=== PATIENT | female | born 1960 | race African-American/Black ===

== ENCOUNTER 2017-01-16 10:32 | Emergency (ER) | payer OTHER ==
[~2017-01-16] VITALS: Ht 167.6 cm; Wt 81.0 kg
[2017-01-16 10:34] VITALS: BP 169/84; PULSE 75; RESP 16; TEMP 97.9; O2SAT 97
[2017-01-16 10:42] VITALS: BP 136/73; PULSE 76; RESP 16; O2SAT 100
[2017-01-16] MEDS ORDERED: FERR1TAB36 PO (10:47)
[2017-01-16] MEDS ORDERED: SODIUM CHLOR 0.9% 1000 ML INJ 1,000 ML IV SCH (10:59)
[2017-01-16] MEDS ORDERED: PANTOPRAZOLE SODIUM 40 MG VIAL IVP ONE (11:00)
[2017-01-16] MEDS ORDERED: SODIUM CHLORIDE 0.9% FLUSH 5 ML FLUSH IVF PRN (11:00)
--- NOTE | 2017-01-16 11:02 | PD ---
HPI Chief Complaint: Abdominal Pain Time Seen by Provider: 11:01 Travel History International Travel<30 days: No Contact w/Intl Traveler<30days: No Traveled to known affect area: No History of Present Illness HPI Patient is a 56-year-old female presenting to her chart for evaluation of epigastric abdominal pain that started this morning. Patient reports pain is a 710 and describes as aching. Patient ate breakfast and felt fine, and the pain started. She's never had pain like this before. She denies any nausea, vomiting, fever, chills, diarrhea, chest pain, shortness of breath. She denies any sick contacts. Patient further denies any alcohol or tobacco use. She denies any illicit drug use. Her past medical history includes anemia, surgical history includes a . [facility] Past Medical History Anemia: Yes Influenza Vaccination: No ?: Not LMP: 01/16/2017 Past Surgical History Section: Yes Social History Alcohol Use: No Tobacco Use: No Substance Use: No Allergies-Medications (Allergen,Severity, Reaction): Coded Allergies: No Known Allergies (Unverified , 01/16/17) Reported Meds & Prescriptions Reported Meds & Active Scripts Active Reported Iron (Ferrous Sulfate) 325 Mg Tab 325 Mg PO DAILY Take Review of Systems Except as stated in HPI: all other systems reviewed are Neg HENT: No: Headaches Respiratory: No: Shortness of Breath Gastrointestinal: Positive: Abdominal Pain, No: Nausea, Vomiting, Diarrhea, Changes in Bowel Habits Musculoskeletal: No: Myalgias Physical Exam Narrative GENERAL: Well-developed, well-nourished, alert female. Resting comfortably in no acute distress. SKIN: Warm and dry. HEAD: Atraumatic. Normocephalic. EYES: Pupils equal and round. No scleral icterus. No injection or drainage. ENT: No nasal bleeding or discharge. Mucous membranes pink and moist. NECK: Trachea midline. No JVD. CARDIOVASCULAR: Regular rate and rhythm. No murmur appreciated. RESPIRATORY: No accessory muscle use. Clear to auscultation. Breath sounds equal bilaterally. GASTROINTESTINAL: Abdomen soft, moderately tender to palpation epigastric region , no rebound, no guarding, nondistended. Hepatic and splenic margins not palpable. Positive bowel sounds. MUSCULOSKELETAL: No obvious deformities. No clubbing. No cyanosis. No edema. NEUROLOGICAL: Awake and alert. No obvious cranial nerve deficits. Motor grossly within normal limits. Normal speech. PSYCHIATRIC: Appropriate mood and affect; insight and judgment normal. Data Data Last Documented VS Vital Signs Date Time Temp Pulse Resp B/P Pulse Ox O2 Delivery O2 Flow Rate FiO2 01/16/17 13:05 65 16 122/58 100 Room Air 01/16/17 10:34 97.9 Orders Complete Blood Count With Diff (01/16/17 10:59) Comprehensive Metabolic Panel (01/16/17 10:59) Lipase (01/16/17 10:59) Lactic Acid (01/16/17 10:59) Prothrombin Time / Inr (Pt) (01/16/17 10:59) Act Partial Throm Time (Ptt) (01/16/17 10:59) Urinalysis - C+S If Indicated (01/16/17 10:59) Ct Abd/Pel W Iv Contrast(Rout) (01/16/17 10:59) Iv Access Insert/Monitor (01/16/17 10:59) Ecg Monitoring (01/16/17 10:59) Oximetry (01/16/17 10:59) NPO (01/16/17 10:59) Pantoprazole Inj (Protonix Inj) (01/16/17 11:00) Sodium Chlor 0.9% 1000 Ml Inj (Ns 1000 M (01/16/17 10:59) Sodium Chloride 0.9% Flush (Ns Flush) (01/16/17 11:00) Iohexol 350 Inj (Omnipaque 350 Inj) (01/16/17 12:55) Labs Laboratory Tests Test 01/16/17 01/16/17 11:10 11:25 White Blood Count 5.1 TH/MM3 Red Blood Count 4.65 MIL/MM3 Hemoglobin 9.8 GM/DL Hematocrit 32.1 % Mean Corpuscular Volume 69.0 FL Mean Corpuscular Hemoglobin 21.1 PG Mean Corpuscular Hemoglobin 30.5 % Concent Red Cell Distribution Width 26.8 % Platelet Count 243 TH/MM3 Mean Platelet Volume 9.1 FL Neutrophils (%) (Auto) 58.3 % Lymphocytes (%) (Auto) 33.5 % Monocytes (%) (Auto) 6.6 % Eosinophils (%) (Auto) 1.0 % Basophils (%) (Auto) 0.6 % Neutrophils # (Auto) 3.0 TH/MM3 Lymphocytes # (Auto) 1.7 TH/MM3 Monocytes # (Auto) 0.3 TH/MM3 Eosinophils # (Auto) 0.1 TH/MM3 Basophils # (Auto) 0.0 TH/MM3 CBC Comment AUTO DIFF Differential Comment AUTO DIFF CONFIRMED Platelet Estimate NORMAL Platelet Morphology Comment ENLARGED Acanthocytes OCC Prothrombin Time 11.7 SEC Prothromb Time International 1.1 RATIO Ratio Activated Partial 25.5 SEC Thromboplast Time Sodium Level 137 MEQ/L Potassium Level 5.3 MEQ/L Chloride Level 104 MEQ/L Carbon Dioxide Level 27.4 MEQ/L Anion Gap 6 MEQ/L Blood Urea Nitrogen 7 MG/DL Creatinine 0.62 MG/DL Estimat Glomerular Filtration 121 ML/MIN Rate Random Glucose 84 MG/DL Lactic Acid Level 0.7 mmol/L Calcium Level 9.2 MG/DL Total Bilirubin 0.4 MG/DL Aspartate Amino Transf 46 U/L (AST/SGOT) Alanine Aminotransferase 19 U/L (ALT/SGPT) Alkaline Phosphatase 66 U/L Total Protein 8.6 GM/DL Albumin 3.7 GM/DL Lipase 86 U/L Urine Color LIGHT-YELLOW Urine Turbidity CLEAR Urine pH 6.5 Urine Specific [place] 1.004 Urine Protein NEG mg/dL Urine Glucose (UA) NEG mg/dL Urine Ketones NEG mg/dL Urine Occult Blood SMALL Urine Nitrite NEG Urine Bilirubin NEG Urine Urobilinogen LESS THAN 2.0 MG/DL Urine Leukocyte Esterase NEG Urine RBC LESS THAN 1 /hpf Urine WBC LESS THAN 1 /hpf Urine Squamous Epithelial 3 /hpf Cells Urine Mucus FEW /lpf Microscopic Urinalysis Comment CULT NOT INDICATED MDM Medical Decision Making Medical Screen Exam Complete: Yes Emergency Medical Condition: Yes Interpretation(s) Vital Signs Date Time Temp Pulse Resp B/P Pulse Ox O2 Delivery O2 Flow Rate FiO2 01/16/17 10:42 76 16 136/73 100 01/16/17 10:34 97.9 75 16 169/84 97 Differential Diagnosis Peptic ulcer disease versus gastritis versus indigestion versus AAA versus other Narrative Course Patient is a 56-year-old female presenting to the emergency room for evaluation of epigastric abdominal pain that started after breakfast this morning. Patient 's vital signs are stable, she was placed on telemetry monitoring, continuous pulse oximetry. Labs and imaging ordered and pending. CBC shows a mild anemia with a hemoglobin of 9.8, consistent with patient's report of anemia historically. Chemistry potassium 5.3, with hemolysis noted. Lactic acid is normal at 0.[address] un[address]. CT scan abdomen and pelvis negative for acute abnormality. There is a 4 cm right ovarian cyst. Upon reassessment abdominal exam is benign. Patient reports improvement in her symptoms. Patient will be discharged home, she is encouraged to follow-up with her primary doctor. She is encouraged to return to emergency department for any new or worsening symptoms. Patient is stable for discharge. Diagnosis Primary Impression: Epigastric abdominal pain of unknown etiology Referrals: Primary Care Physician 2 days Patient Instructions: Epigastric Pain (ED), General Instructions Additional Instructions: Follow-up with your primary doctor Take medications as directed Return to emergency department for any new or worsening symptoms Med/Other Pt SpecificInfo: Prescription(s) given Scripts Pantoprazole (Protonix)40 Mg Tab40 Mg PO DAILY 14 Days Ref 0 Take 30 minutes prior to a meal and prior to taking any other medications. Prov:Monica Delgado 01/16/17 Disposition: DISCHARGE HOME Condition: Stable Monica Delgado Jan 16, 2017 11:02
[2017-01-16 11:29] LABS: BASOPHIL % 0.6 % (0.0-2.0); EOSINOPHIL # 0.1 TH/MM3 (0-0.4); HEMATOCRIT 32.1 % (35.0-46.0); LYMPH % 33.5 % (9.0-44.0); LYMPHOCYTE # 1.7 TH/MM3 (1.0-4.8); MEAN CORPUSCULAR HEMOGLOBIN 21.1 PG (27.0-34.0); MEAN CORPUSCULAR HGB CONC 30.5 % (32.0-36.0); MONO % 6.6 % (0.0-8.0); NEUT % 58.3 % (16.0-70.0); PLATELET COUNT 243 TH/MM3 (150-450); RED BLOOD COUNT 4.65 MIL/MM3 (4.00-5.30); RED CELL DISTRIBUTION WIDTH 26.8 % (11.6-17.2); WHITE BLOOD COUNT 5.1 TH/MM3 (4.0-11.0)
[2017-01-16 11:31] LABS: HEMO FLAGS AUTO DIFF
[2017-01-16 11:34] VITALS: BP 130/75; PULSE 90; RESP 16; O2SAT 100
[2017-01-16 11:39] LABS: INTERNATIONAL NORMALIZED RATIO 1.1 RATIO; PROTHROMBIN TIME - PATIENT 11.7 SEC (9.8-11.6)
[2017-01-16 11:40] LABS: APTT (PATIENT) 25.5 SEC (24.3-30.1)
[2017-01-16 11:51] LABS: ALKALINE PHOSPHATASE 66 U/L (45-117); TOTAL BILIRUBIN ADULT 0.4 MG/DL (0.2-1.0)
[2017-01-16 11:54] LABS: BLOOD, URINE SMALL (NEG); COMMENT (UR) CULT NOT INDICATED; CULTURE IF INDICATED CULT NOT INDICATED; GLUCOSE,URINE NEG (NEG); KETONE, URINE NEG (NEG); MUCUS URINE FEW /lpf (OCC); NITRITE,URINE NEG (NEG); PH, URINE 6.5 (5.0-8.5); SQUAMOUS EPITHELIAL CELL URINE 3 /hpf (0-5); URINE COLOR LIGHT-YELLOW (YELLW/STRAW)
[2017-01-16 12:05] LABS: ALT (GPT) 19 U/L (10-53); ANION GAP 6 MEQ/L (5-15); AST (GOT) 46 U/L (15-37); BICARBONATE 27.4 MEQ/L (21.0-32.0); BLOOD UREA NITROGEN 7 MG/DL (7-18); CHLORIDE 104 MEQ/L (98-107); GLOMERULAR FILTRATION RATE 121 ML/MIN (>89); SODIUM (NA) 137 MEQ/L (136-145)
[2017-01-16 12:07] LABS: POTASSIUM 5.3 MEQ/L (3.5-5.1)
[2017-01-16 12:24] LABS: ACANTHOCYTES OCC (NORMAL); PLATELET ESTIMATE SMEAR NORMAL (NORMAL); PLATELET MORPHOLOGY ENLARGED (NORMAL); SCAN/DIFF AUTO DIFF CONFIRMED
[2017-01-16] MEDS ORDERED: IOHEXOL 350 MG/ML 10 ML VIAL (for RAD DIAG) IV ONE (12:55)
--- NOTE | 2017-01-16 13:04 | RADRPT ---
EXAM DATE/TIME: 01/16/2017 12:37 [facility] COMPARISON: No previous studies available for comparison. INDICATIONS : Eppigastric pain starting this morning. IV CONTRAST: 71 cc Omnipaque 350 (iohexol) IV ORAL CONTRAST: No oral contrast ingested. RADIATION DOSE: 9.96 CTDIvol (mGy) MEDICAL HISTORY : None SURGICAL HISTORY : section. ENCOUNTER: Initial ACUITY: 1 day PAIN SCALE: 7/10 LOCATION: abdomen TECHNIQUE: Volumetric scanning of the abdomen and pelvis was performed. Using automated exposure control and ad justment of the mA and/or kV according to patient size, radiation dose was kept as low as reasonably achievable to obtain optimal diagnostic quality images. FINDINGS: LOWER LUNGS: The visualized lower lungs are clear. LIVER: Homogeneous density without lesion other than benign cyst right lobe liver. There is no dilation of the biliary tree. No calcified gallstones. SPLEEN: Normal size without lesion. PANCREAS: Within normal limits. KIDNEYS: Normal in size and shape. There is no mass, stone or hydronephrosis. ADRENAL GLANDS: Within normal limits. VASCULAR: There is no aortic aneurysm. BOWEL/MESENTERY: The stomach, small bowel, and colon demonstrate no acute abnormality. There is no free intraperitone al air or fluid. ABDOMINAL WALL: Within normal limits. RETROPERITONEUM: There is no lymphadenopathy. BLADDER: No wall thickening or mass. REPRODUCTIVE: 4 cm right ovarian cyst. INGUINAL: There is no lymphadenopathy or hernia. MUSCULOSKELETAL: Within normal limits for patient age. CONCLUSION: Normal examination except for 4 cm right ovarian cyst. Jake Freeman MD on January 16, 2017 at 13:01 Board Certified Radiologist. This report was verified electronically.
[2017-01-16 13:05] VITALS: BP 122/58; PULSE 65; RESP 16; O2SAT 100
[2017-01-16] MEDS ORDERED: PROT40TA PO (13:13)
--- NOTE | 2017-01-16 13:16 | PD ---
Physical Exam Narrative GENERAL: Well-nourished, well-developed patient. SKIN: Warm and dry. HEAD: Normocephalic and atraumatic. EYES: No injection or drainage. ENT: No nasal drainage noted. NECK: Supple, trachea midline. CARDIOVASCULAR: Regular rate and rhythm RESPIRATORY: no increased effort. No accessory muscle use. GASTROINTESTINAL: Abdomen soft, non-tender, nondistended. NEUROLOGICAL: Awake and alert. Motor and sensory grossly within normal limits. Normal speech. Data Data Last Documented VS Vital Signs Date Time Temp Pulse Resp B/P Pulse Ox O2 Delivery O2 Flow Rate FiO2 01/16/17 13:05 65 16 122/58 100 Room Air 01/16/17 10:34 97.9 Orders Complete Blood Count With Diff (01/16/17 10:59) Comprehensive Metabolic Panel (01/16/17 10:59) Lipase (01/16/17 10:59) Lactic Acid (01/16/17 10:59) Prothrombin Time / Inr (Pt) (01/16/17 10:59) Act Partial Throm Time (Ptt) (01/16/17 10:59) Urinalysis - C+S If Indicated (01/16/17 10:59) Ct Abd/Pel W Iv Contrast(Rout) (01/16/17 10:59) Iv Access Insert/Monitor (01/16/17 10:59) Ecg Monitoring (01/16/17 10:59) Oximetry (01/16/17 10:59) NPO (01/16/17 10:59) Pantoprazole Inj (Protonix Inj) (01/16/17 11:00) Sodium Chlor 0.9% 1000 Ml Inj (Ns 1000 M (01/16/17 10:59) Sodium Chloride 0.9% Flush (Ns Flush) (01/16/17 11:00) Iohexol 350 Inj (Omnipaque 350 Inj) (01/16/17 12:55) Labs Laboratory Tests Test 01/16/17 01/16/17 11:10 11:25 White Blood Count 5.1 TH/MM3 Red Blood Count 4.65 MIL/MM3 Hemoglobin 9.8 GM/DL Hematocrit 32.1 % Mean Corpuscular Volume 69.0 FL Mean Corpuscular Hemoglobin 21.1 PG Mean Corpuscular Hemoglobin 30.5 % Concent Red Cell Distribution Width 26.8 % Platelet Count 243 TH/MM3 Mean Platelet Volume 9.1 FL Neutrophils (%) (Auto) 58.3 % Lymphocytes (%) (Auto) 33.5 % Monocytes (%) (Auto) 6.6 % Eosinophils (%) (Auto) 1.0 % Basophils (%) (Auto) 0.6 % Neutrophils # (Auto) 3.0 TH/MM3 Lymphocytes # (Auto) 1.7 TH/MM3 Monocytes # (Auto) 0.3 TH/MM3 Eosinophils # (Auto) 0.1 TH/MM3 Basophils # (Auto) 0.0 TH/MM3 CBC Comment AUTO DIFF Differential Comment AUTO DIFF CONFIRMED Platelet Estimate NORMAL Platelet Morphology Comment ENLARGED Acanthocytes OCC Prothrombin Time 11.7 SEC Prothromb Time International 1.1 RATIO Ratio Activated Partial 25.5 SEC Thromboplast Time Sodium Level 137 MEQ/L Potassium Level 5.3 MEQ/L Chloride Level 104 MEQ/L Carbon Dioxide Level 27.4 MEQ/L Anion Gap 6 MEQ/L Blood Urea Nitrogen 7 MG/DL Creatinine 0.62 MG/DL Estimat Glomerular Filtration 121 ML/MIN Rate Random Glucose 84 MG/DL Lactic Acid Level 0.7 mmol/L Calcium Level 9.2 MG/DL Total Bilirubin 0.4 MG/DL Aspartate Amino Transf 46 U/L (AST/SGOT) Alanine Aminotransferase 19 U/L (ALT/SGPT) Alkaline Phosphatase 66 U/L Total Protein 8.6 GM/DL Albumin 3.7 GM/DL Lipase 86 U/L Urine Color LIGHT-YELLOW Urine Turbidity CLEAR Urine pH 6.5 Urine Specific [place] 1.004 Urine Protein NEG mg/dL Urine Glucose (UA) NEG mg/dL Urine Ketones NEG mg/dL Urine Occult Blood SMALL Urine Nitrite NEG Urine Bilirubin NEG Urine Urobilinogen LESS THAN 2.0 MG/DL Urine Leukocyte Esterase NEG Urine RBC LESS THAN 1 /hpf Urine WBC LESS THAN 1 /hpf Urine Squamous Epithelial 3 /hpf Cells Urine Mucus FEW /lpf Microscopic Urinalysis Comment CULT NOT INDICATED MDM Supervised Visit with LEROY: Yes Interpretation(s) CBC & BMP Diagram 01/16/17 11:10 Last 24 hours Impressions Abdomen/Pelvis CT 01/16/17 1059 Signed Impressions: Service Date/Time: Monday, January 16, 2017 12:37 - CONCLUSION: Normal examination except for 4 cm right ovarian cyst. Jake Freeman MD Narrative Course I, Dr. sanders, have reviewed the advance practice practitioner's documentation and am in agreement, met with the patient face to face, made the diagnosis, and the medical decision making was done by me. *My assessment and Findings: 56 y/o female presents with central abdominal pain that started this morning and is resolved now, ed workup no acute, agrees to d/ c and further workup outpatient if returns Diagnosis Primary Impression: Epigastric abdominal pain of unknown etiology Patient Instructions: General Instructions Med/Other Pt SpecificInfo: Prescription(s) given Scripts Pantoprazole (Protonix)40 Mg Tab40 Mg PO DAILY 14 Days Ref 0 Take 30 minutes prior to a meal and prior to taking any other medications. Prov:Monica Delgado 01/16/17 Disposition: 01 DISCHARGE HOME Condition: Stable Rosa Sanders MD Jan 16, 2017 13:16
== END 2017-01-16 13:28 | disposition home or self-care (01) ==
LOC: NEPE 10:32
DX: R10.13 Epigastric pain (principal); D64.9 Anemia, unspecified
CPT/HCPCS: 74177; 80053; 81001; 83605; 83690; 85025; 85610; 85730; 96361; 96374; 99284; C9113; J7030; Q9967

== ENCOUNTER 2017-04-24 22:20 | Emergency (ER) | payer OTHER ==
[~2017-04-24 22:20] MED LIST: FERR1TAB36 PO; PROT40TA PO
[2017-04-24 22:27] VITALS: BP 141/82; PULSE 93; RESP 16; TEMP 98.6; O2SAT 99
--- NOTE | 2017-04-24 23:26 | PD ---
HPI Chief Complaint: Pain: Acute or Chronic Time Seen by Provider: 23:22 Travel History International Travel<30 days: No Contact w/Intl Traveler<30days: No Traveled to known affect area: No History of Present Illness HPI 46-year-old black female presents emergency Department with complains of right lower back pain with pain down the right leg 2 days. She denies any trauma. She states that she's never had pain at this nature in the past. She was seen by her doctor today for a checkup. She states that the doctor did not want to address her complaint of pain today. She reports that her doctor advised her to come to the ER to be evaluated and get an x-ray. She denies any fevers or chills. No nausea vomiting. No abdominal pain. No bowel or bladder changes. No focal numbness or tingling. Pain is worse with palpation and movement. PFSH Past Medical History Narrative Medical Anemia. Denies diabetes and hypertension Anemia: Yes Diminished Hearing: No Tetanus Vaccination: Unknown Influenza Vaccination: No ?: Not Past Surgical History Section: Yes Social History Alcohol Use: No Tobacco Use: No Substance Use: No Allergies-Medications (Allergen,Severity, Reaction): Coded Allergies: No Known Allergies (Unverified , 01/16/17) Reported Meds & Prescriptions Reported Meds & Active Scripts Active Flexeril (Cyclobenzaprine HCl) 10 Mg Tab 10 Mg PO TID Diclofenac Sodium DR (Diclofenac Sodium) 75 Mg Tabdr 75 Mg PO BID Protonix (Pantoprazole Sodium) 40 Mg Tab 40 Mg PO DAILY 14 Days Take 30 minutes prior to a meal and prior to taking any other medications. Reported Iron (Ferrous Sulfate) 325 Mg Tab 325 Mg PO DAILY Take Review of Systems Except as stated in HPI: all other systems reviewed are Neg Musculoskeletal: Positive: Arthralgias, Pain, No: Myalgias, Limited ROM, Edema Skin: No Rash Neurologic: No: Paresthesia Physical Exam Narrative GENERAL: Well-developed, well-nourished in no apparent distress. Nontoxic appearing. HEAD: Normocephalic, atraumatic. EYES: Pupils equal round and reactive. Extraocular motions intact. No scleral icterus. No injection or drainage. ENT: Nose clear. Throat without erythema, tonsillar hypertrophy or exudate. Uvula midline. Airway patent. NECK: Trachea midline. Supple, nontender, moves head freely. No central bony tenderness or spasm. CARDIOVASCULAR: Regular rate and rhythm without murmurs, gallops, or rubs. RESPIRATORY: Clear to auscultation. Breath sounds equal bilaterally. No wheezes , rales, or rhonchi. GASTROINTESTINAL: Abdomen soft, non-tender, nondistended. No hepato-splenomegaly , or palpable masses. No guarding. EXTREMITIES: No clubbing, cyanosis, or edema. No joint tenderness. BACK: No central bony tenderness to palpation of the dorsal lumbar spine. Patient has pain in the right lower lumbar right sacral region into the right buttocks. Negative straight leg raise bilaterally. She has intact sensation with good distal pulses. Her lower extremities are normal color, temperature in size. This is right compared to left. Without deformity. No flank tenderness. No saddle anesthesia. NEUROLOGICAL: Awake, alert and oriented x 3 .Cranial nerves grossly intact. Motor and sensory grossly within normal limits. Normal speech. Data Data Last Documented VS Vital Signs Date Time Temp Pulse Resp B/P Pulse Ox O2 Delivery O2 Flow Rate FiO2 04/24/17 23:20 16 04/24/17 22:27 98.6 93 141/82 99 Orders Spine, Lumbar - Ltd (Ap & Lat) (04/24/17 23:21) Ibuprofen (Motrin) (04/24/17 23:30) MDM Medical Decision Making Medical Screen Exam Complete: Yes Emergency Medical Condition: Yes Medical Record Reviewed: Yes Interpretation(s) Lumbar spine: Negative for acute fracture. Normal alignment. Differential Diagnosis MDM: High Differential diagnoses: Fracture, sprain, strain, HNP, nerve or vascular injury , epidural abscess, pilonidal cyst Narrative Course Patient's given Motrin 800 mg by mouth. I explained to the patient that x-rays not necessary but she reports that her physician has requested 1 today. We will oblige her. This is lower back pain with radiculopathy Diagnosis Primary Impression: lower back pain with right leg radiculopathy Patient Instructions: General Instructions Additional Instructions: Rest. Ice for the next 3 days followed by heat . Flexeril and Voltaren. Follow-up with a primary care doctor in one week. Return to the ER for emergencies. Med/Other Pt SpecificInfo: Prescription(s) given Scripts Cyclobenzaprine (Flexeril)10 Mg Tab10 Mg PO TID #21 TAB Prov:Blossom Campbell MD 04/24/[address] 75 Mg Tabdr75 Mg PO BID #20 TAB Prov:Blossom Campbell MD 04/24/17 Disposition: 01 DISCHARGE HOME Condition: Stable Erwin Winters Apr 24, 2017 23:26
[2017-04-24] MEDS ORDERED: DICL75TA PO (23:27)
[2017-04-24] MEDS ORDERED: CYCL1TAB29 PO (23:27)
[2017-04-24] MEDS ORDERED: IBUPROFEN 800 MG TAB PO ONE (23:30)
--- NOTE | 2017-04-24 23:44 | RADRPT ---
EXAM DATE/TIME: 04/24/2017 23:34 [facility] COMPARISON: No previous studies available for comparison. INDICATIONS : Lumbar spine pain. No known injury. MEDICAL HISTORY : None. SURGICAL HISTORY : None. ENCOUNTER: Initial ACUITY: 1 week PAIN SCORE: 7/10 LOCATION: Bilateral lumbar spine FINDINGS: Two view examination was performed. There are five non-rib bearing vertebral bodies. The vertebral bodies are in normal alignment without evidence of subluxation or scoliosis. The disc spaces are trini ntained. The pedicles are intact. Bony mineralization is normal. No fracture is identified. CONCLUSION: Unremarkable limited examination of the lumbar spine. Jake Freeman MD on April 24, 2017 at 23:43 Board Certified Radiologist. This report was verified electronically.
== END 2017-04-25 00:17 | disposition home or self-care (01) ==
LOC: NEPD 22:20
DX: M54.5 Low back pain (principal); M54.16 Radiculopathy, lumbar region
CPT/HCPCS: 72100; 99284

== ENCOUNTER 2017-08-07 09:17 | Observation (INO) | payer OTHER ==
[2017-08-07] VITALS (9 sets, daily range): BP systolic 124–139; BP diastolic 67–79; PULSE 68–86; RESP 16–20; TEMP 98.2–98.6; O2SAT 95–100
[~2017-08-07] VITALS: Ht 167.6 cm; Wt 83.0 kg
[~2017-08-07 09:17] MED LIST changes: +CYCL1TAB29 PO; +DICL75TA PO
[2017-08-07] MEDS ORDERED: NITR1SUB3 SL (09:32)
[2017-08-07] MEDS ORDERED: FERR325T8 PO (09:32)
--- NOTE | 2017-08-07 09:45 | PD ---
HPI Chief Complaint: Chest Pain Time Seen by Provider: 09:40 Travel History International Travel<30 days: No Contact w/Intl Traveler<30days: No Traveled to known affect area: No History of Present Illness HPI 57-year-old female patient with history of cardiac issues, has nitroglycerin at home, follows up with Dr. Roper, here because of left-sided sharp substernal chest pains that started last night. She denies any radiation, states that she took her own nitroglycerin this morning and it went away. She denies any nausea , but states she has had intermittent dyspnea on exertion which she states is fairly chronic for her. She denies any coughing, shortness of breath, or any other symptoms. She is currently chest pain-free. She does not know any exacerbating or relieving factors. Modifying Factors: Worse with exertion, better with nitroglycerin Associated Signs & Symptoms: Chest pains, dyspnea on exertion Risk Factors: Cardiac history PFSH Past Medical History Anemia: Yes Cardiovascular Problems: Yes Chest Pain: Yes Diminished Hearing: No ?: Not Past Surgical History Surgical History: No Previous Surgery Section: Yes Social History Alcohol Use: No Tobacco Use: No Substance Use: No Allergies-Medications (Allergen,Severity, Reaction): Coded Allergies: No Known Allergies (Unverified , 01/16/17) Reported Meds & Prescriptions Reported Meds & Active Scripts Active Flexeril (Cyclobenzaprine HCl) 10 Mg Tab 10 Mg PO TID Reported Nitroglycerin SL (Nitroglycerin) 0.4 Mg Subl 0.4 Mg SL DIRECTED PRN ONE TABLET UNDER THE TONGUE NEEDED FOR CHEST PAIN, MAY REPEAT EVERY FIVE MINUTES FOR A TOTAL OF 3 DOSES OR CALL 911 IF NO RELIEF Ferrous Sulfate 325 Mg (65 Mg Iron) Tablet 325 Mg PO DAILY Review of Systems Except as stated in HPI: all other systems reviewed are Neg Physical Exam Narrative GENERAL: Well-developed middle aged -[place] female patient currently in mild distress. Awake and oriented 3. SKIN: Focused skin assessment warm/dry. HEAD: Atraumatic. Normocephalic. EYES: Pupils equal and round. No scleral icterus. No injection or drainage. ENT: No nasal bleeding or discharge. Mucous membranes pink and moist. NECK: Trachea midline. No JVD. CARDIOVASCULAR: Regular rate and rhythm. No murmur appreciated. RESPIRATORY: No accessory muscle use. Clear to auscultation. Breath sounds equal bilaterally. GASTROINTESTINAL: Abdomen soft, non-tender, nondistended. Hepatic and splenic margins not palpable. MUSCULOSKELETAL: No obvious deformities. No clubbing. No cyanosis. No edema. NEUROLOGICAL: Awake and alert. No obvious cranial nerve deficits. Motor grossly within normal limits. Normal speech. PSYCHIATRIC: Appropriate mood and affect; insight and judgment normal. Data Data Last Documented VS Vital Signs Date Time Temp Pulse Resp B/P (MAP) Pulse Ox O2 Delivery O2 Flow Rate FiO2 08/07/17 09:27 Room Air 08/07/17 09:27 98.6 86 20 139/79 (99) 99 Orders Orders Electrocardiogram (08/07/17 09:59) Ckmb (Isoenzyme) Profile (08/07/17 09:59) Complete Blood Count With Diff (08/07/17 09:59) Comprehensive Metabolic Panel (08/07/17 09:59) Magnesium (Mg) (08/07/17 09:59) Prothrombin Time / Inr (Pt) (08/07/17 09:59) Act Partial Throm Time (Ptt) (08/07/17 09:59) Troponin I (08/07/17 09:59) Chest, Single Ap (08/07/17 09:59) Ecg Monitoring (08/07/17 09:59) Bilateral Bp Monitoring (08/07/17 09:59) Iv Access Insert/Monitor (08/07/17 09:59) Oximetry (08/07/17 09:59) Oxygen Administration (08/07/17 09:59) Sodium Chloride 0.9% Flush (Ns Flush) (08/07/17 10:00) CKMB (08/07/17 10:05) CKMB% (08/07/17 10:05) Labs Laboratory Tests Test 08/07/17 10:05 White Blood Count 5.0 TH/MM3 Red Blood Count 4.32 MIL/MM3 Hemoglobin 10.6 GM/DL Hematocrit 33.6 % Mean Corpuscular Volume 77.7 FL Mean Corpuscular Hemoglobin 24.5 PG Mean Corpuscular Hemoglobin Concent 31.5 % Red Cell Distribution Width 19.7 % Platelet Count 258 TH/MM3 Mean Platelet Volume 8.9 FL Neutrophils (%) (Auto) 59.4 % Lymphocytes (%) (Auto) 31.3 % Monocytes (%) (Auto) 7.4 % Eosinophils (%) (Auto) 1.1 % Basophils (%) (Auto) 0.8 % Neutrophils # (Auto) 3.0 TH/MM3 Lymphocytes # (Auto) 1.6 TH/MM3 Monocytes # (Auto) 0.4 TH/MM3 Eosinophils # (Auto) 0.1 TH/MM3 Basophils # (Auto) 0.0 TH/MM3 CBC Comment DIFF FINAL Differential Comment Prothrombin Time 11.4 SEC Prothromb Time International Ratio 1.0 RATIO Activated Partial Thromboplast Time 24.5 SEC Blood Urea Nitrogen 6 MG/DL Creatinine 0.63 MG/DL Random Glucose 93 MG/DL Total Protein 8.3 GM/DL Albumin 3.4 GM/DL Calcium Level 9.3 MG/DL Magnesium Level 2.1 MG/DL Alkaline Phosphatase 83 U/L Aspartate Amino Transf (AST/SGOT) 25 U/L Alanine Aminotransferase (ALT/SGPT) 21 U/L Total Bilirubin 0.2 MG/DL Sodium Level 139 MEQ/L Potassium Level 3.4 MEQ/L Chloride Level 105 MEQ/L Carbon Dioxide Level 27.8 MEQ/L Anion Gap 6 MEQ/L Estimat Glomerular Filtration Rate 119 ML/MIN Total Creatine Kinase 153 U/L Creatine Kinase MB 0.9 NG/ML Troponin I LESS THAN 0.02 NG/ML MDM Medical Decision Making Medical Screen Exam Complete: Yes Emergency Medical Condition: Yes Medical Record Reviewed: Yes Interpretation(s) EKG shows NSR, no ST elevation or depression, and no arrhythmias. No significant T-wave inversions. Laboratory Tests Test 08/07/17 10:05 Hemoglobin 10.6 GM/DL (11.6-15.3) Hematocrit 33.6 % (35.0-46.0) Mean Corpuscular Volume 77.7 FL (80.0-100.0) Mean Corpuscular Hemoglobin 24.5 PG (27.0-34.0) Mean Corpuscular Hemoglobin Concent 31.5 % (32.0-36.0) Red Cell Distribution Width 19.7 % (11.6-17.2) Blood Urea Nitrogen 6 MG/DL (7-18) Total Protein 8.3 GM/DL (6.4-8.2) Potassium Level 3.4 MEQ/L (3.5-5.1) Troponin I LESS THAN 0.02 NG/ML Differential Diagnosis Chest pain episode: Unstable angina versus dysrhythmias versus ACS versus costochondritis versus symptomatic anemia Narrative Course EKG cardiac enzymes are negative. At this point, my plan would be to admit the patient for further cardiac evaluation especially cardiac history. Patient does not remember what her cardiac history is. Patient is currently chest pain- free and aspirin and nitroglycerin has been given by EMS. Diagnosis Primary Impression: Chest pain Admitting Information Admitting Physician Requests: it Diana De La Cruz MD Aug 07, 2017 09:45
[2017-08-07] MEDS ORDERED: SODIUM CHLORIDE 0.9% FLUSH 10 ML FLUSH IVF PRN (10:00)
[2017-08-07 10:22] LABS: BASOPHIL % 0.8 % (0.0-2.0); EOSINOPHIL # 0.1 TH/MM3 (0-0.4); EOSINOPHIL % 1.1 % (0.0-4.0); HEMATOCRIT 33.6 % (35.0-46.0); HEMO FLAGS DIFF FINAL; LYMPH % 31.3 % (9.0-44.0); LYMPHOCYTE # 1.6 TH/MM3 (1.0-4.8); MEAN CELL VOLUME 77.7 FL (80.0-100.0); MEAN CORPUSCULAR HEMOGLOBIN 24.5 PG (27.0-34.0); MEAN CORPUSCULAR HGB CONC 31.5 % (32.0-36.0); MONO % 7.4 % (0.0-8.0); NEUT % 59.4 % (16.0-70.0); PLATELET COUNT 258 TH/MM3 (150-450); RED BLOOD COUNT 4.32 MIL/MM3 (4.00-5.30); RED CELL DISTRIBUTION WIDTH 19.7 % (11.6-17.2)
[2017-08-07 10:36] LABS: APTT (PATIENT) 24.5 SEC (24.3-30.1); PROTHROMBIN TIME - PATIENT 11.4 SEC (9.8-11.6)
[2017-08-07 10:49] LABS: ALKALINE PHOSPHATASE 83 U/L (45-117); ALT (GPT) 21 U/L (10-53); CREATINE KINASE 153 U/L (26-192); TOTAL BILIRUBIN ADULT 0.2 MG/DL (0.2-1.0)
[2017-08-07 10:51] LABS: ANION GAP 6 MEQ/L (5-15); AST (GOT) 25 U/L (15-37); BICARBONATE 27.8 MEQ/L (21.0-32.0); BLOOD UREA NITROGEN 6 MG/DL (7-18); CHLORIDE 105 MEQ/L (98-107); GLOMERULAR FILTRATION RATE 119 ML/MIN (>89); MAGNESIUM 2.1 MG/DL (1.5-2.5); POTASSIUM 3.4 MEQ/L (3.5-5.1); SODIUM (NA) 139 MEQ/L (136-145)
[2017-08-07 11:02] LABS: CKMB 0.9 NG/ML (0.5-3.6)
--- NOTE | 2017-08-07 11:02 | RADRPT ---
EXAM DATE/TIME: 08/07/2017 10:33 [facility] COMPARISON: No previous studies available for comparison. INDICATIONS : Left side chest pains x2 days, radiating into back. MEDICAL HISTORY : None. SURGICAL HISTORY : ENCOUNTER: Initial ACUITY: 2 days PAIN SCORE: 8/10 LOCATION: Left chest FINDINGS: A single view of the chest demonstrates the lungs to be symmetrically aerated without evidence of mas s, infiltrate or effusion. The cardiomediastinal contours are unremarkable. Osseous structures are intact. CONCLUSION: No acute disease. Erwin Hutchins MD on August 07, 2017 at 11:00 Board Certified Radiologist. This report was verified electronically.
[2017-08-07] MEDS ORDERED: ONDANSETRON HCL 4 MG/2 ML VIAL IV PUSH PRN (11:45)
[2017-08-07] MEDS ORDERED: ACETAMINOPHEN 500 MG CPLT PO PRN (11:45)
[2017-08-07] MEDS ORDERED: NITROGLYCERIN 0.4 MG SL 25 TABS/BTL SL PRN (11:45)
[2017-08-07] MEDS ORDERED: SODIUM CHLORIDE 0.9% FLUSH 10 ML FLUSH IV FLUSH PRN (11:45)
--- NOTE | 2017-08-07 13:17 | HHI.HP ---
HPI Primary Care Physician Santa Love MD Chief Complaint Chest pain History of Present Illness 57-year-old female with no significant past medical history presents to emergency room for further evaluation of chest pain. Onset 11:30 PM. Location left inframammary and left anterior chest area. Described as a "cramp." No radiation of pain. No associated symptoms of nausea, vomiting, shortness of breath or diaphoresis. Hurt to take a deep breath. No particular movement or position make pain better or worse, in fact states she tried not to move due to severe pain. Severity of pain rated initially at 10/10. No precipitating factors. No known trauma, injury, or recent fall. Relieving factors she relates nitroglycerin tablet given by EMS helped immediately and completely for about one hour. Currently chest pain occurs intermittently, lasting seconds, with a severity 2-3/10. Denies similar pain in the past. Review of Systems General: No fatigue,weakness, fever, chills, or recent illness. As been in her general state of health. HEENT: No LEWIS, no nasal congestion or drainage, no dysphasia. CV: As stated above. History of palpitations beginning early this year, denies any recent palpations. No Intermittent leg pain or dizziness. RESP: No SOB, wheeze, sputum production, or history of asthma. Chronic cough since February 2017, reports she has a tonsillectomy in February due to chronic cough and "problems with my tonsils." Since removal of tonsils continues to have cough , she has not followed up with MD regarding this. GI: No nausea, vomiting, bowel changes, diarrhea, constipation, pain, distention , or melena. Intermittent blood in the stool, has been told blood in from hemorrhoids. Had colonoscopy in the past which was unremarkable. No change in appetite, no unintentional weight gain or weight loss. : No dysuria, urgency, or frequency EXT: No lower leg edema, no paraesthesias MS: No discomfort or change in ROM NEURO: No change in memory, difficulty with balance, LOC, motor/sensory deficits PSYCH: No anxiety, depression SKIN: No rashes, no concerning lesions Past Family Social History Allergies: Coded Allergies: No Known Allergies (Unverified , 01/16/17) Past Medical History Anemia, palpitations Past Surgical History Tonsillectomy Reported Medications Active Nitroglycerin SL (Nitroglycerin) 0.4 Mg Subl 0.4 Mg SL DIRECTED PRN ONE TABLET UNDER THE TONGUE NEEDED FOR CHEST PAIN, MAY REPEAT EVERY FIVE MINUTES FOR A TOTAL OF 3 DOSES OR CALL 911 IF NO RELIEF (never has taken nitroglycerin until given in [facility]) Ferrous Sulfate 325 Mg (65 Mg Iron) Tablet 325 Mg PO DAILY Active Ordered Medications Current Medications Medications (Trade) Dose Ordered Sig/Ramon Route Start Time Stop Time Status Last Admin (NS Flush) 2 ml UNSCH PRN IV FLUSH 08/07/17 11:45 (NS Flush) 2 ml BID IV FLUSH 08/07/17 21:00 (Tylenol) 500 mg Q4H PRN PO 08/07/17 11:45 (Zofran Inj) 4 mg Q6H PRN IV PUSH 08/07/17 11:45 (Nitrostat Sl) 0.4 mg Q5M PRN SL 08/07/17 11:45 (Aspirin) 325 mg DAILY PO 08/08/17 09:00 Family History Noncontributory for early onset cardiovascular disease. Both mother and father from lung cancer. Social History No known coronary artery disease, diabetes, hypertension, or hyperlipidemia. Lifelong nonsmoker. Denies any alcohol or illegal drug use. Unemployed. Endorses a sedentary lifestyle. Past cardiac testing Stress test one year ago follows with Dr. Roper. Physical Exam Vital Signs Vital Signs Date Time Temp Pulse Resp B/P (MAP) Pulse Ox O2 Delivery O2 Flow Rate FiO2 08/07/17 12:51 98 21 08/07/17 12:35 98.3 68 20 124/67 (86) 99 08/07/17 11:38 69 16 134/75 (94) 100 08/07/17 09:27 Room Air 08/07/17 09:27 98.6 86 20 139/79 (99) 99 Room Air 08/07/17 09:25 100 08/07/17 09:25 100 Nasal Cannula 2.00 Physical Exam GENERAL: Alert WN, WD, NAD, pleasant, female HEAD: NC, AT EYES: Sclera clear, conjunctiva without injection, pupils equal and round ENT: Mucous membranes pink and moist, no nasal discharge or bleeding CV: RRR, without murmur, rub, gallop, no JVD, S1-S2 no S3-S4. RESP: Clear lungs throughout bilateral, no crackles, wheeze, rhonchi, symmetrical chest rise, nonlabored, able to speak in full sentences ABD: Soft, NT, ND, no masses, positive bowel tones EXT: Pulses +24, trace pedal edema MS: Normal tone 4 extremities, nontender, no obvious deformities, full range of motion NEURO: CN II through CN XII grossly intact, motor strength 5/5, gait WNL PSYCH: A+O 3, pleasant affect, appropriate speech, appropriate mood and affect , insight and judgment SKIN: Normal turgor, normal texture, no lesions, no rashes, brisk cap refill, even hair distribution Laboratory Laboratory Tests Test 08/07/17 10:05 White Blood Count 5.0 Red Blood Count 4.32 Hemoglobin 10.6 Hematocrit 33.6 Mean Corpuscular Volume 77.7 Mean Corpuscular Hemoglobin 24.5 Mean Corpuscular Hemoglobin Concent 31.5 Red Cell Distribution Width 19.7 Platelet Count 258 Mean Platelet Volume 8.9 Neutrophils (%) (Auto) 59.4 Lymphocytes (%) (Auto) 31.3 Monocytes (%) (Auto) 7.4 Eosinophils (%) (Auto) 1.1 Basophils (%) (Auto) 0.8 Neutrophils # (Auto) 3.0 Lymphocytes # (Auto) 1.6 Monocytes # (Auto) 0.4 Eosinophils # (Auto) 0.1 Basophils # (Auto) 0.0 CBC Comment DIFF FINAL Differential Comment Prothrombin Time 11.4 Prothromb Time International Ratio 1.0 Activated Partial Thromboplast Time 24.5 Blood Urea Nitrogen 6 Creatinine 0.63 Random Glucose 93 Total Protein 8.3 Albumin 3.4 Calcium Level 9.3 Magnesium Level 2.1 Alkaline Phosphatase 83 Aspartate Amino Transf (AST/SGOT) 25 Alanine Aminotransferase (ALT/SGPT) 21 Total Bilirubin 0.2 Sodium Level 139 Potassium Level 3.4 Chloride Level 105 Carbon Dioxide Level 27.8 Anion Gap 6 Estimat Glomerular Filtration Rate 119 Total Creatine Kinase 153 Creatine Kinase MB 0.9 Troponin I LESS THAN 0.02 Result Diagram: 08/07/17 1005 08/07/17 1005 Imaging Last Impressions Chest X-Ray 08/07/17 0959 Signed Impressions: Service Date/Time: Monday, August 07, 2017 10:33 - CONCLUSION: No acute disease. Erwin Hutchins MD Course EKG Normal sinus rhythm, normal axis, no ST or T-segment changes Caprini VTE Risk Assessment Caprini VTE Risk Assessment: No/Low Risk (score <= 1) Caprini Risk Assessment Model Point Value = 1 Point Value = 2 Point Value = 3 Point Value = 5 Age 41-60 Minor surgery BMI > 25 kg/m2 Swollen legs Varicose veins or History of unexplained or recurrent spontaneous Oral contraceptives or hormone replacement Sepsis (< 1 month) Serious lung disease, including pneumonia (< 1 month) Abnormal pulmonary function Acute myocardial infarction Congestive heart failure (< 1 month) History of inflammatory bowel disease Medical patient at bed rest Age 61-74 Arthroscopic surgery Major open surgery (> 45 min) Laparoscopic surgery (> 45 min) Malignancy Confined to bed (> 72 hours) Immobilizing plaster cast Central venous access Age >= 75 History of VTE Family history of VTE Factor V Leiden Prothrombin [id number] Lupus anticoagulant Anticardiolipin antibodies Elevated serum homocysteine Heparin-induced thrombocytopenia Other congenital or acquired thrombophilia Stroke (< 1 month) Elective arthroplasty Hip, pelvis, or leg fracture Acute spinal cord injury (< 1 month) Prophylaxis Regimen Total Risk Factor Score Risk Level Prophylaxis Regimen 0-1 Low Early ambulation 2 Moderate Order ONE of the following: *Sequential Compression Device (SCD) *Heparin 5000 units SQ BID 3-4 Higher Order ONE of the following medications: *Heparin 5000 units SQ TID *Enoxaparin/Lovenox 40 mg SQ daily (WT < 150 kg, CrCl > 30 mL/min) *Enoxaparin/Lovenox 30 mg SQ daily (WT < 150 kg, CrCl > 10-29 mL/min) *Enoxaparin/Lovenox 30 mg SQ BID (WT < 150 kg, CrCl > 30 mL/min) AND/OR *Sequential Compression Device (SCD) 5 or more Highest Order ONE of the following medications: *Heparin 5000 units SQ TID (Preferred with Epidurals) *Enoxaparin/Lovenox 40 mg SQ daily (WT < 150 kg, CrCl > 30 mL/min) *Enoxaparin/Lovenox 30 mg SQ daily (WT < 150 kg, CrCl > 10-29 mL/min) *Enoxaparin/Lovenox 30 mg SQ BID (WT < 150 kg, CrCl > 30 mL/min) AND *Sequential Compression Device (SCD) Assessment and Plan Assessment and Plan #1 Chest pain-admitted to chest pain center. Rule out with 3 sets of EKG and cardiac enzymes. Chest discomfort appears to be musculoskeletal in nature, easily reproduced with palpation and has been consistent since last evening. Discussed possible stress testing, however this will be determined by professor of journalism. Patient agreeable to plan of care. #2 Anemia-stable, hemoglobin and hematocrit improved since last visit April, continue iron supplementations. 15:10 Spoke with office staff at Dr. Roper office. Patient completed an exercise stress test December 2016. She followed up in January 2017, at that time Dr. Roper requested her to complete a nuclear treadmill stress test due to ST changes on exercise stress test but patient refused. Discussed this with patient and she reports she was afraid of completing a nuclear test but agrees to have at this time if required. 17:15 Seen and evaluated by Dr. Doan. Proceed with nuclear treadmill stress testing in morning, continue to monitor over night. Patient agreeable to plan of care. Mari Washington Aug 07, 2017 13:17
--- NOTE | 2017-08-07 14:19 | EKG ---
Date Performed: 08/07/2017 Time Performed: 09:25:49 PTAGE: 57 years EKG: Sinus rhythm NORMAL ECG NO PREVIOUS TRACING DOCTOR: Jamar Caldera Interpretating Date/Time 08/07/2017 14:13:53
[2017-08-07 14:25] LABS: CREATINE KINASE 124 U/L (26-192)
[2017-08-07 14:37] LABS: CKMB 0.8 NG/ML (0.5-3.6)
[2017-08-07 17:01] LABS: CREATINE KINASE 127 U/L (26-192)
[2017-08-07 17:14] LABS: CKMB 0.7 NG/ML (0.5-3.6)
[2017-08-07] MEDS ORDERED: POTASSIUM CHLORIDE 20 MEQ CONTROLLED RELEASE TAB PO ONE (18:00)
--- NOTE | 2017-08-07 18:26 | EKG ---
Date Performed: 08/07/2017 Time Performed: 13:19:49 PTAGE: 57 years EKG: Sinus rhythm NORMAL ECG Since PREVIOUS TRACING , no significant change noted PREVIOUS TRACIN08/07/2017 09.25 DOCTOR: Tianna Doan Interpretating Date/Time 08/07/2017 18:25:52
[2017-08-07] MEDS ORDERED: SODIUM CHLORIDE 0.9% FLUSH 10 ML FLUSH IV FLUSH SCH (21:00)
[2017-08-08] VITALS: BP 125/65; PULSE 76; RESP 18; TEMP 98.1; O2SAT 95
[2017-08-08 04:31] VITALS: BP 134/61; PULSE 75; RESP 18; TEMP 98.3; O2SAT 97
[2017-08-08 07:33] VITALS: BP 128/73; PULSE 78; RESP 19; TEMP 98.1; O2SAT 97
[2017-08-08 08:15] VITALS: PULSE 89
[2017-08-08] MEDS ORDERED: ASPIRIN 325 MG TAB PO SCH (09:00)
--- NOTE | 2017-08-08 11:10 | RADRPT ---
EXAM DATE/TIME: 08/08/2017 08:27 [facility] COMPARISON: No previous studies available for comparison. INDICATIONS : Left side substernal chest pain for 1 day. Angina DOSE: 25.8 mCi Tc99m Myoview at stress 8.4 mCi Tc99m Myoview at rest REST HEART RATE: 90 BPM TARGET HEART RATE: 140 BPM MAX HEART RATE: 148 BPM REST BLOOD PRESSURE: 140/88 mmHg MAX BLOOD PRESSURE: 180/86 mmHg EJECTION FRACTION: 65% MEDICAL HISTORY : Hypertension. SURGICAL HISTORY : None. ENCOUNTER: Initial ACUITY: 1 day PAIN SCALE: 3/10 LOCATION: Substernal chest TECHNIQUE: The patient underwent upright treadmill exercise in the chest pain center. Continuous ECG tracing wa s monitored during stress. Gated SPECT imaging was performed after stress, and conventional SPECT im aging was performed at rest. The examination was performed on a SPECT/CT scanner, both attenuation-c orrected and non-corrected datasets were reviewed. FINDINGS: DISTRIBUTION: The maximum perfused segment at stress is in the anterolateral wall. PERFUSION STUDY: The pattern of perfusion at stress is within normal limits. GATED STUDY: There is intact wall motion and thickening without hypokinetic or dyskinetic segments. CONCLUSION: Negative stress myocardial perfusion scan at 90% maximal exercise RISK CATEGORY: Low (<1% Annual Mortality Rate) Casimiro Ingram MD FACR on August 08, 2017 at 11:07 Board Certified Radiologist. This report was verified electronically.
[2017-08-08 11:13] VITALS: BP 142/76; PULSE 74; TEMP 98.3; O2SAT 99
--- NOTE | 2017-08-08 11:26 | TR ---
Date Performed: 08/08/2017 Time Performed: 09:30:46 DOCTOR: Ryley Gomez DRUG LIST: CLINICAL HISTORY: CHEST PAIN REASON FOR TEST: REASON FOR ENDING: OBSERVATION: CONCLUSION: NUC ETT. NO CP. COMPLAINED OF SOB AND LEG FATIGUE.Maximum GA=255 % Max HR Achieved=9 0.0% Maximum SL=109/86 Total Exercise Time=4:45 COMMENTS: st depression noted in inferior leads suggestive of ischemia. Nuclear imaging pending.
--- NOTE | 2017-08-08 11:27 | HHI.DCPOC ---
Discharge Care Plan Diagnosis: (1) Chest pain Goals to Promote Your Health * To prevent worsening of your condition and complications * To maintain your health at the optimal level Directions to Meet Your Goals Take your medications as prescribed Follow your dietary instruction Follow activity as directed Keep your appointments as scheduled Take your immunizations and boosters as scheduled If your symptoms worsen call your PCP, if no PCP go to Urgent Care Center or Emergency Room Smoking is Dangerous to Your Health. Avoid second hand smoke Call the 24-hour hour crisis hotline for domestic abuse at Fer[facility] Santana Aug 08, 2017 11:27
== END 2017-08-08 12:10 | disposition home or self-care (01) ==
LOC: NEPC 09:17 → NEDA 11:09 → NEPFCDU 12:25
PROVIDERS: ADMIT Internal Medicine Interventional Cardiology; ATTEND Internal Medicine Interventional Cardiology
DX: R07.89 Other chest pain (principal); D64.9 Anemia, unspecified; R06.02 Shortness of breath
CPT/HCPCS: 71010; 78452; 80053; 82550; 82552; 83735; 84484; 85025; 85610; 85730; 93005; 93017; 99285; A9502; G0378

== ENCOUNTER 2017-08-23 03:55 | Emergency (ER) | payer OTHER ==
[~2017-08-23] VITALS: Ht 162.6 cm; Wt 85.0 kg
[~2017-08-23 03:55] MED LIST changes: -DICL75TA PO; -FERR1TAB36 PO; +FERR325T8 PO; +NITR1SUB3 SL; -PROT40TA PO
[2017-08-23] MEDS ORDERED: ORPHENADRINE INJ 60 MG/2 ML AMP IM ONE (04:00)
[2017-08-23] MEDS ORDERED: DEXAMETHASONE SOD PHOS 20 MG/5 ML VIAL IM ONE (04:00)
[2017-08-23] MEDS ORDERED: KETOROLAC TROMETHAMINE 60 MG/2 ML (IM) VIAL IM ONE (04:00)
[2017-08-23 04:02] VITALS: BP 164/82; PULSE 92; RESP 18; O2SAT 99
--- NOTE | 2017-08-23 04:02 | PD ---
HPI Chief Complaint: Back/ Neck Pain or Injury Time Seen by Provider: 03:57 Travel History International Travel<30 days: No Contact w/Intl Traveler<30days: No History of Present Illness HPI Patient is a 57-year-old female presenting to emergency for evaluation of right lower back pain that radiates down her right leg. Patient states the pain started last night around 6 or 7 PM. She took Tylenol with no relief of her symptoms so she presented to the emergency department for evaluation. She denies any numbness or tingling in her lower extremities, she denies any bladder or bowel incontinence, no saddle paresthesia. She states her pain is a 10 out of 10, and states that shooting. There are no alleviating factors, it is exacerbated with movement. PFSH Past Medical History Anemia: Yes Heart Rhythm Problems: No Cardiac Catheterization: No High Cholesterol: No Chest Pain: Yes Congestive Heart Failure: No Diabetes: No Diminished Hearing: No Musculoskeletal: Yes (sciatica) Past Surgical History Section: Yes Coronary Artery Bypass Graft: No Social History Alcohol Use: No Tobacco Use: No Substance Use: No Allergies-Medications (Allergen,Severity, Reaction): Coded Allergies: No Known Allergies (Unverified , 01/16/17) Reported Meds & Prescriptions Reported Meds & Active Scripts Active Flexeril (Cyclobenzaprine HCl) 10 Mg Tab 10 Mg PO TID Reported Nitroglycerin SL (Nitroglycerin) 0.4 Mg Subl 0.4 Mg SL DIRECTED PRN ONE TABLET UNDER THE TONGUE NEEDED FOR CHEST PAIN, MAY REPEAT EVERY FIVE MINUTES FOR A TOTAL OF 3 DOSES OR CALL 911 IF NO RELIEF Ferrous Sulfate 325 Mg (65 Mg Iron) Tablet 325 Mg PO DAILY Review of Systems Except as stated in HPI: all other systems reviewed are Neg Musculoskeletal: Positive: Arthralgias, Pain Physical Exam Narrative GENERAL: Well-developed, well-nourished, alert female. Resting comfortably in no acute distress. SKIN: Warm and dry. HEAD: Atraumatic. Normocephalic. EYES: Pupils equal and round. No scleral icterus. No injection or drainage. ENT: No nasal bleeding or discharge. Mucous membranes pink and moist. NECK: Trachea midline. No JVD. CARDIOVASCULAR: Regular rate and rhythm. RESPIRATORY: No accessory muscle use. Clear to auscultation. Breath sounds equal bilaterally. GASTROINTESTINAL: Abdomen soft, non-tender, nondistended. Hepatic and splenic margins not palpable. MUSCULOSKELETAL: Extremities without clubbing, cyanosis, or edema. No obvious deformities. Tenderness to palpation over right SI joint. No spinal tenderness or step-off noted. NEUROLOGICAL: Awake and alert. No obvious cranial nerve deficits. Motor grossly within normal limits. Five out of 5 muscle strength in the arms and legs. Normal speech. PSYCHIATRIC: Appropriate mood and affect; insight and judgment normal. Data Data Last Documented VS Vital Signs Date Time Temp Pulse Resp B/P (MAP) Pulse Ox O2 Delivery O2 Flow Rate FiO2 08/23/17 04:50 98.5 08/23/17 04:02 92 18 99 Room Air Orders Orders Ketorolac Inj (Toradol Inj) (08/23/17 04:00) Orphenadrine Inj (Norflex Inj) (08/23/17 04:00) Dexamethasone Inj (Decadron Inj) (08/23/17 04:00) MDM Medical Decision Making Medical Screen Exam Complete: Yes Emergency Medical Condition: Yes Interpretation(s) Vital Signs Date Time Temp Pulse Resp B/P (MAP) Pulse Ox O2 Delivery O2 Flow Rate FiO2 08/23/17 04:50 98.5 08/23/17 04:02 92 18 164/82 (109) 99 Room Air Differential Diagnosis Lumbar strain versus spasm versus sciatica versus discogenic pain versus other Narrative Course Patient presented for evaluation of right lower back pain that radiates down her right leg. She is neurologically intact. Patient was given Toradol, Norflex, dexamethasone in the emergency department. Prior to arrival she has not trialed any conservative management other than Tylenol one time. Patient was encouraged to follow-up with her primary doctor. She was encouraged to apply warm heat to affected area, continue range of motion exercises, take medications as directed. She was encouraged to return to emergency department for any new or worsening symptoms. Patient verbalized understanding of instructions. Patient stable for discharge. Diagnosis Primary Impression: Sciatica Qualified Codes: M54.31 - Sciatica, right side Referrals: Primary Care Physician 1 day Patient Instructions: General Instructions, Sciatica (ED) Additional Instructions: Follow-up with your primary doctor in 1-2 days Take medications as directed and as needed Apply warm heat to the affected area, continue range of motion exercises, avoid exacerbating activities, avoid bed rest Return to emergency department for any new or worsening symptoms Med/Other Pt SpecificInfo: Prescription(s) given Scripts Meloxicam (Meloxicam) 15 Mg Tab 15 MG PO DAILY Y for PAIN SCALE 1 TO 10, #10 TAB 0 Refills Prov: Monica Delgado 08/23/17 Cyclobenzaprine (Flexeril) 10 Mg Tab 10 MG PO TID Y for MUSCLE SPASM, #30 TAB 0 Refills Prov: Monica Delgado 08/23/17 Disposition: 01 DISCHARGE HOME Condition: Stable Monica Delgado Aug 23, 2017 04:02
[2017-08-23 04:50] VITALS: TEMP 98.5
[2017-08-23] MEDS ORDERED: MELO-1 PO ×2 (04:58→04:59)
[2017-08-23] MEDS ORDERED: CYCL1TAB29 PO (04:58)
== END 2017-08-23 05:59 | disposition home or self-care (01) ==
LOC: NEPD 03:55
DX: M54.41 Lumbago with sciatica, right side (principal)
CPT/HCPCS: 96372; 99284; J1100; J1885; J2360

== ENCOUNTER 2017-12-23 17:39 | Emergency (ER) | payer OTHER ==
[~2017-12-23 17:39] MED LIST changes: +CYCL10TA PO; -CYCL1TAB29 PO; +FERR325T18 PO; -FERR325T8 PO; +MELO15TA20 PO
[2017-12-23 17:41] VITALS: BP 164/78; PULSE 92; RESP 16; TEMP 98.3; O2SAT 99
--- NOTE | 2017-12-23 18:04 | PD ---
HPI Chief Complaint: Pain: Acute or Chronic Time Seen by Provider: 18:03 Travel History International Travel<30 days: No Contact w/Intl Traveler<30days: No Traveled to known affect area: No History of Present Illness HPI 57-year-old female presents to the emergency department with 1 month history of left arm pain. Patient states the pain is localized to the left shoulder. It is worse with movement and if she rolls over on it while sleeping. Patient denies any specific injury is been getting progressively worse over the past month. She denies fever, chills, chest pain, shortness of breath, or other symptoms. She has no numbness or tingling distally in the arm. She denies neck pain. No previous injury to this shoulder as noted in her distant past. She is right-handed. The patient has not been taking any medications for it. She has no known drug allergies. [facility] Past Medical History Anemia: Yes Heart Rhythm Problems: No Cardiac Catheterization: No Cardiovascular Problems: Yes High Cholesterol: No Chest Pain: Yes (takes nitro) Congestive Heart Failure: No Diabetes: No Diminished Hearing: No Hypertension: Yes (not medicated) Musculoskeletal: Yes (sciatica) Past Surgical History Section: Yes Coronary Artery Bypass Graft: No Social History Alcohol Use: No Tobacco Use: No Substance Use: No Allergies-Medications (Allergen,Severity, Reaction): Coded Allergies: No Known Allergies (Unverified , 01/16/17) Reported Meds & Prescriptions Reported Meds & Active Scripts Active Meloxicam 15 Mg Tab 15 Mg PO DAILY PRN Flexeril (Cyclobenzaprine HCl) 10 Mg Tab 10 Mg PO TID PRN Flexeril (Cyclobenzaprine HCl) 10 Mg Tab 10 Mg PO TID Reported Nitroglycerin SL (Nitroglycerin) 0.4 Mg Subl 0.4 Mg SL DIRECTED PRN ONE TABLET UNDER THE TONGUE NEEDED FOR CHEST PAIN, MAY REPEAT EVERY FIVE MINUTES FOR A TOTAL OF 3 DOSES OR CALL 911 IF NO RELIEF Ferrous Sulfate 325 Mg (65 Mg Iron) Tablet 325 Mg PO DAILY Review of Systems Except as stated in HPI: all other systems reviewed are Neg General / Constitutional: No: Fever Eyes: No: Visual changes HENT: No: Headaches Cardiovascular: No: Chest Pain or Discomfort Respiratory: No: Shortness of Breath Gastrointestinal: No: Abdominal Pain Genitourinary: No: Dysuria Musculoskeletal: Positive: Myalgias, Arthralgias, Limited ROM, Pain (See history of present illness) Skin: No Rash Neurologic: No: Weakness Psychiatric: No: Depression Endocrine: No: Polydipsia Hematologic/Lymphatic: No: Easy Bruising Physical Exam Narrative GENERAL: Patient appears in no obvious distress SKIN: Warm and dry. Normal color. Normal turgor. No rash. HEAD: Atraumatic. Normocephalic. EYES: Pupils equal and round. No scleral icterus. No injection or drainage. ENT: No nasal bleeding or discharge. Mucous membranes pink and moist. Pharynx is clear. Airway is patent. NECK: Trachea midline. No bony tenderness or step-off. Range of motion is full and nontender. CARDIOVASCULAR: Regular rate and rhythm. RESPIRATORY: No accessory muscle use. Clear to auscultation. Breath sounds equal bilaterally. GASTROINTESTINAL: Abdomen soft, non-tender, nondistended. Hepatic and splenic margins not palpable. MUSCULOSKELETAL: Extremities without clubbing, cyanosis, or edema. No obvious deformities. Patient has tenderness with palpation along the upper trapezius and deltoid, with increased pain with ranges of motion suggestive of bursitis versus rotator cuff tendinitis. No real weakness is noted other than secondary to pain. NEUROLOGICAL: Awake and alert. No obvious cranial nerve deficits. Motor grossly within normal limits. Five out of 5 muscle strength in the arms and legs. Normal speech. PSYCHIATRIC: Appropriate mood and affect; insight and judgment normal. Data Data Last Documented VS Vital Signs Date Time Temp Pulse Resp B/P (MAP) Pulse Ox O2 Delivery O2 Flow Rate FiO2 12/23/17 17:41 98.3 92 16 164/78 (106) 99 Orders Orders Prednisone (Deltasone) (12/23/17 18:15) Shoulder, Complete (>2vws) (12/23/17 18:10) [facility] Medical Decision Making Medical Screen Exam Complete: Yes Emergency Medical Condition: Yes Differential Diagnosis Left shoulder pain. Tendinitis. Bursitis. Narrative Course Patient is medically stable at time of exam. Patient is given prednisone 40 mg p.o. now. X-rays of the left shoulder are obtained. X-ray show no acute findings. Per radiologist. Patient will be continued on prednisone 20 mg twice daily 7 days. Patient is to continue with Mapap 500 mg 2 tabs every 6 hours as needed pain # 80. Patient is to apply heat followed by ice to the area. Patient is to follow-up with her primary care physician in the next week to ensure improvement and perhaps be referred to orthopedist as needed. Diagnosis Primary Impression: Tendinitis of left rotator cuff Additional Impression: Bursitis of left shoulder Referrals: Primary Care Physician Patient Instructions: General Instructions Additional Instructions: X-ray show no acute findings. Per radiologist. Patient will be continued on prednisone 20 mg twice daily 7 days. Patient is to continue with Mapap 500 mg 2 tabs every 6 hours as needed pain # 80. Patient is to apply heat followed by ice to the area. Patient is to follow-up with her primary care physician in the next week to ensure improvement and perhaps be referred to orthopedist as needed. Med/Other Pt SpecificInfo: Prescription(s) given Disposition: 01 DISCHARGE HOME Condition: Stable Francis Shepherd Dec 23, 2017 18:04
[2017-12-23] MEDS ORDERED: predniSONE 20 MG TAB PO ONE (18:15)
[2017-12-23] MEDS ORDERED: PRED20 PO (18:32)
[2017-12-23] MEDS ORDERED: MAPA500T13 PO (18:32)
--- NOTE | 2017-12-23 18:38 | RADRPT ---
EXAM DATE/TIME: 12/23/2017 18:19 [place] COMPARISON: No previous studies available for comparison. INDICATIONS : Pain in left shoulder known injury. MEDICAL HISTORY : None. SURGICAL HISTORY : None. ENCOUNTER: Initial ACUITY: 1 day PAIN SCORE: 0/10 LOCATION: Left shoulder FINDINGS: No definite fractures, or dislocations are identified. No definite lytic or sclerotic lesion is seen . The joint space is well maintained. CONCLUSION: Unremarkable study. Cat Mathew MD on December 23, 2017 at 18:36 Board Certified Radiologist. This report was verified electronically.
== END 2017-12-23 19:03 | disposition home or self-care (01) ==
LOC: NEPD 17:39
DX: M75.52 Bursitis of left shoulder (principal); D64.9 Anemia, unspecified; I10 Essential (primary) hypertension; Z79.899 Other long term (current) drug therapy
CPT/HCPCS: 73030; 99283; J7512